=== PATIENT | male | born 1945 | race Caucasian/White ===

== ENCOUNTER 2017-05-15 12:47 | Emergency (ER) | payer MEDICARE ==
[2017-05-15 13:38] VITALS: RESP 18
[2017-05-15] MEDS ORDERED: HYDROcodone/APAP 5-325MG 1 EACH TAB PO STA (14:23)
--- NOTE | 2017-05-15 15:06 | ED ---
Fall HPI <Al Mccarty - Last Filed: 05/15/17 15:30> - General Source: patient Mode of arrival: ambulatory <hSaye Michael - Last Filed: 05/15/17 23:26> - General Chief Complaint: Fall Stated Complaint: Fall/Rib Pain Time Seen by Provider: 05/15/17 14:17 - History of Present Illness Initial Comments: 72-year-old male patient presents for evaluation of left-sided rib pain after experiencing a fall today. Patient states around 11:00 he was getting out of the bed of his pickup truck, stepped down onto a note crate when the milk crate tipped and he fell. Patient states he struck his ribs on the corner of the milk crate. He states he has been having pain to his ribs at the midclavicular line just below his breast since it happened. States it hurts to take a deep breath. Patient states that he feels mildly short of breath however feels is more related to pain. He denies hitting his head or losing consciousness. He denies any other injuries. He denies any radiation of the pain to his back. Patient denies any headache, neck pain, back pain, chest pain, dizziness, weakness, abdominal pain, nausea, vomiting, or difficulties with bowel movements or urination. (Shaye Michael) - Related Data Home Medications Medication Instructions Recorded Confirmed Amitriptyline HCl [Elavil] 20 mg PO HS 05/15/17 05/15/17 Ergocalciferol [Vitamin D2] 50,000 unit PO FORREST 05/15/17 05/15/17 Instaflex 1 tab PO DAILY 05/15/17 05/15/17 Lisinopril [Zestril] 10 mg PO DAILY 05/15/17 05/15/17 Montelukast Sodium [Singulair] 10 mg PO DAILY 05/15/17 05/15/17 Naltrexone HCl/Bupropion HCl 2 tab PO BID 05/15/17 05/15/17 [Contrave ER 8-90 mg Tablet] Pravastatin Sodium [Pravachol] 10 mg PO Q48H 05/15/17 05/15/17 Ubidecarenone [Co Q-10] 100 mg PO Q48H 05/15/17 05/15/17 rOPINIRole HCL [rOPINIRole HCL] 0.5 mg PO BID 05/15/17 05/15/17 Previous Rx's Medication Instructions Recorded Hydrocodone/Acetaminophen [Greenwald 1 tab PO Q6HR PRN #28 tab 05/15/17 5-325] Ibuprofen [Motrin] 600 mg PO Q8HR PRN #30 tab 05/15/17 Allergies Allergy/AdvReac Type Severity Reaction Status Date / Time Sulfa (Sulfonamide AdvReac Rash/Hives Verified 05/15/17 14:37 Antibiotics) Review of Systems ROS Other: All systems not noted in ROS Statement are negative. <Al Mccarty - Last Filed: 05/15/17 15:30> ROS Other: All systems not noted in ROS Statement are negative. <Shaye Michael - Last Filed: 05/15/17 23:26> ROS Statement: Those systems with pertinent positive or pertinent negative responses have been documented in the HPI. Past Medical History Past Medical History: No Reported History History of Any Multi-Drug Resistant Organisms: None Reported Past Surgical History: No Surgical Hx Reported Past Psychological History: No Psychological Hx Reported Smoking Status: Never smoker Past Alcohol Use History: None Reported Past Drug Use History: None Reported <Shaye Michael - Last Filed: 05/15/17 23:26> General Exam Limitations: no limitations General appearance: alert, in no apparent distress, other (Physical well- developed, well-nourished adult male patient in no acute distress. Vital signs upon presentation her temperature 98.4F, pulse 73, respirations 18, blood pressure 157/82, pulse ox 97% on room air.) ENT exam: Present: normal exam, normal oropharynx, mucous membranes moist Neck exam: Present: normal inspection, full ROM, other (Nontender, no step-off, no deformity to firm midline palpation of the posterior cervical spine. Full range of motion without pain or limitation.). Absent: tenderness, meningismus, lymphadenopathy Respiratory exam: Present: normal lung sounds bilaterally. Absent: respiratory distress, wheezes, rales, rhonchi, stridor Cardiovascular Exam: Present: regular rate, normal rhythm, normal heart sounds. Absent: systolic murmur, diastolic murmur, rubs, gallop, clicks GI/Abdominal exam: Present: soft, normal bowel sounds, other (No tenderness to deep palpation over the left upper quadrant, right upper quadrant. No evidence of flank ecchymosis bilateral.). Absent: distended, tenderness, guarding, rebound, rigid Extremities exam: Present: normal inspection, full ROM, normal capillary refill , other (No tenderness over the hips, or with compression of the pelvis.). Absent: tenderness, pedal edema, joint swelling, calf tenderness Back exam: Present: normal inspection, other (Normal back. No flank ecchymosis. ). Absent: tenderness, CVA tenderness (R), CVA tenderness (L), vertebral tenderness Neurological exam: Present: alert, oriented X3, CN II-XII intact Psychiatric exam: Present: normal affect, normal mood Skin exam: Present: warm, dry, intact, normal color. Absent: rash <Shaye Michael - Last Filed: 05/15/17 23:26> Course <Al Mccarty - Last Filed: 05/15/17 15:30> <Shaye Michael - Last Filed: 05/15/17 23:26> Vital Signs 05/15/17 05/15/17 13:35 15:37 Temperature 98.4 F 98 F Pulse Rate 73 75 Respiratory 18 18 Rate Blood Pressure 157/82 142/78 O2 Sat by Pulse 97 98 Oximetry - Reevaluation(s) Reevaluation #1: 05/15/17 15:30 PA supervision: I did personally do a [id number] evaluation the patient he does have good lung sounds bilaterally minimal tenderness with deep breathing. The patient x-rays do show evidence of 2 rib fractures on the left. Patient was given an incentives from a tree he was demonstrated out easily by respiratory therapy. (Al Mccarty) Medical Decision Making <Al Mccarty - Last Filed: 05/15/17 15:30> - Radiology Data Radiology results: report reviewed, image reviewed <Shaye Michael - Last Filed: 05/15/17 23:26> - Medical Decision Making 72-year-old male patient presented for evaluation of left rib pain after a fall. He states it hurts to take a deep breath or presses over the area. He denied any abdominal pain and physical exam did not reveal any abdominal tenderness. Lung sounds are clear and equal bilaterally. X-ray did show a fracture to the seventh and eighth ribs on the left side. Patient was given education and instructions regarding use of incentive spirometry. He was instructed regarding splinting during cough and deep breathing exercises. He was given a prescription for Greenwald and ibuprofen for pain control. He is instructed to follow-up with his primary care physician for recheck in 1-2 days. He is instructed to return here immediately for any new, worsening, or concerning symptoms. Patient verbalizes understanding and agrees with this plan. (Shaye Michael) - Radiology Data One view of the chest and 4 views of the left ribs are obtained. There is no pneumothorax or consolidation. Heart size and the upper limits of normal. There is reduced inspiration. Arthropathy of the left shoulder. Slight deformity of the left anterior lateral seventh and eighth ribs. Impression by Dr. Rushing was acute displaced fracture anterolateral left seventh and eighth rib. (Shaye Michael) Disposition <Al Mccarty - Last Filed: 05/15/17 15:30> Time of Disposition: 15:29 <Shaye Michael - Last Filed: 05/15/17 23:26> Clinical Impression: Rib fractures Disposition: HOME SELF-CARE Condition: Good Instructions: How to Use an Incentive Spirometer (ED), Rib Fracture (ED) Additional Instructions: Splint with pillow while taking deep breaths or coughing. Use the incentive spirometer at least 10 times an hour while awake. If your watching television do this during commercials. Take medications as directed. Take a stool softener with the pain medication so you do not become constipated. Follow up with her primary care physician for recheck in 1-2 days. Return here immediately for any new, worsening, or concerning symptoms. Prescriptions: Hydrocodone/Acetaminophen [Greenwald 5-325] 1 tab PO Q6HR PRN #28 tab PRN Reason: Pain Ibuprofen [Motrin] 600 mg PO Q8HR PRN #30 tab PRN Reason: Pain Referrals: Emerita Ferrera DO [Primary Care Provider] - 1-2 days
--- NOTE | 2017-05-15 15:06 | XR ---
EXAMINATION TYPE: XR ribs LT w pa chest xray DATE OF EXAM: 05/15/2017 COMPARISON: NONE HISTORY: Left-sided pain TECHNIQUE: One view of the chest and 4 views of the left ribs are obtained. FINDINGS: There is no pneumothorax or consolidation. Heart size at the upper limits of normal. There is reduced inspiration. Arthropathy of the shoulder. Slight deformity of the left anterolateral seventh and eig hth rib. IMPRESSION: 1. Acute displaced fracture anterolateral left seventh and eighth rib
[2017-05-15 15:38] VITALS: BP 142/78; PULSE 75; TEMP 98
== END 2017-05-15 15:37 | disposition home or self-care (01) ==
LOC: EC 12:47
DX: S22.42XA Multiple fractures of ribs, left side, initial encounter for closed fracture (principal); Z79.899 Other long term (current) drug therapy; Z88.2 Allergy status to sulfonamides; W18.31XA Fall on same level due to stepping on an object, initial encounter; Y92.812 Truck as the place of occurrence of the external cause
CPT/HCPCS: 99283

== ENCOUNTER → 2017-10-08 | Outpatient (CLI) | payer MEDICARE ==
[2017-10-08 12:53] LABS: Blood Urea Nitrogen 25 mg/dL (9-20)
== END | disposition home or self-care (01) ==
LOC: LABWHC1 11:53
PROVIDERS: ATTEND Otolaryngology
DX: R42 Dizziness and giddiness (principal); H93.3X2 Disorders of left acoustic nerve
CPT/HCPCS: 36415; 82565; 84520

== ENCOUNTER → 2017-10-09 | Outpatient (CLI) | payer MEDICARE ==
--- NOTE | 2017-10-09 09:08 | MR ---
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 FINDINGS: Diffusion weighted images demonstrate no evidence of a recent infarct or other diffusion ab normality. There is no extra-axial fluid collection. Scattered nonenhancing T2/FLAIR hyperintense fo ci are seen within the subcarinal and periventricular white matter, moderate burden given the patient 's age with the largest in the left frontal lobe measuring 9 mm. The ventricular system and cisternal spaces are normal in size and appearance. The brain volume is age appropriate. Midline structures demonstrate normal morphology. The craniocervical junction appears within normal limits. Post contrast images demonstrate no abnormal enhancement. The dural venous sinuses appear pa tent. The globes are intact. Mild mucosal thickening is seen within the right maxillary and ethmoid s inuses. The remaining visualized paranasal sinuses and mastoid air cells are well aerated. Major intr acranial flow voids are maintained. There is no abnormal enhancement of the 7th or 8th cranial nerves. No evidence for extra canalicular or intracanalicular mass. No acoustic schwannoma/neuroma is identified. No fluid is seen within the m iddle ear cavities. No cerebellar pontine angle mass. IMPRESSION: 1. No evidence of abnormal enhancement of the 7th or 8th cranial nerves are acoustic schwannoma. Mast oid air cells are well-aerated. No fluid within the middle ear cavities. No cerebellar pontine angle mass. No abnormal intracranial enhancement or mass. 2. Moderate nonspecific white matter changes, most commonly on the basis of chronic microangiopathy. 3. Mild right maxillary and ethmoidal paranasal sinus disease.
== END | disposition home or self-care (01) ==
LOC: RADMRIMAIN 07:09
PROVIDERS: ATTEND Otolaryngology
DX: I73.9 Peripheral vascular disease, unspecified (principal); R90.89 Other abnormal findings on diagnostic imaging of central nervous system
CPT/HCPCS: 70553; A9581

== ENCOUNTER 2024-04-21 12:05 | Inpatient (IN) | payer MEDICARE ==
[2024-04-21 12:36] LABS: Basophils % (A) 0 %; Eosinophils # (A) 0.2 k/uL (0-0.7); Eosinophils % (A) 4 %; HCT 41.4 % (39.0-53.0); HGB 13.7 gm/dL (13.0-17.5); Lymphocytes % (A) 18 %; MCH 33.1 pg (25.0-35.0); MCV 100.6 fL (80.0-100.0); Mean Platelet Volume 8.1; Monocytes # (A) 0.4 k/uL (0-1.0); Monocytes % (A) 7 %; Neutrophils # (A) 3.8 k/uL (1.3-7.7); Neutrophils % (A) 69 %; Platelet Count 210 k/uL (150-450); RBC 4.12 m/uL (4.30-5.90); RDW 13.2 % (11.5-15.5); WBC 5.6 k/uL (3.8-10.6)
--- NOTE | 2024-04-21 12:38 | XR ---
EXAMINATION TYPE: XR chest 2V DATE OF EXAM: 04/21/2024 COMPARISON: 05/15/2017 TECHNIQUE: PA and lateral views submitted. HISTORY: Chest pain FINDINGS: Limited inspiration. Grossly the lungs are clear and there is no pneumothorax, pleural effusion, or focal pneumonia. Heart size normal and no overt failure. Osseous structures demonstrate hypertrophic and degenerative changes of the spine. Biapical pleural thickening. Question chronic rib or may suggest trauma. IMPRESSION: 1. No acute process.
[2024-04-21 12:41] LABS: Partial Thromboplastin Time 23.3 sec (22.0-30.0); Prothrombin Time 10.9 sec (10.0-12.5)
[2024-04-21 12:46] LABS: ALT 19 U/L (4-49); AST 26 U/L (17-59); African American GFR (CKD) 47 (>60 ml/min/1.73 sqM); Albumin 4.5 g/dL (3.5-5.0); Alkaline Phosphatase 67 U/L (38-126); Anion Gap 6 mmol/L; Blood Urea Nitrogen 36 mg/dL (9-20); Calcium 9.7 mg/dL (8.4-10.2); Carbon Dioxide 26 mmol/L (22-30); Chloride 105 mmol/L (98-107); Glucose 95 mg/dL (74-99); Magnesium 1.9 mg/dL (1.6-2.3); Non-African American GFR(CKD) 40 (>60 ml/min/1.73 sqM); Sodium 137 mmol/L (137-145); Total Bilirubin 0.5 mg/dL (0.2-1.3); Total Protein 7.3 g/dL (6.3-8.2)
--- NOTE | 2024-04-21 13:04 | ED ---
General Adult HPI - General Chief complaint: Chest Pain Stated complaint: chest pains Time Seen by Provider: 04/21/24 12:10 Source: patient, RN notes reviewed, old records reviewed Mode of arrival: ambulatory Limitations: no limitations - History of Present Illness Initial comments: This is an 79-year-old male who presents to the emergency department stating while he was outside working picking up sticks and wood. Patient states started having chest pain he described as very sharp and radiated to his jaw he became very short of breath. Patient states the jaw pain is gone away but he still has some chest pain is about a 4 out of 10 and he still feels short of breath while sitting here. Patient denies any cardiac history patient denies diabetes but he does have high cholesterol and high blood pressure. Patient denies any recent fever chills or cough. Patient denies any back pain. Patient has abdominal pain patient has nausea vomit diarrhea. Patient has a headache patient [place] numbness or weakness. - Related Data Home Medications Medication Instructions Recorded Confirmed Amitriptyline HCl [Elavil] 20 mg PO HS 05/15/17 05/15/17 Ergocalciferol [Vitamin D2] 50,000 unit PO FORREST 05/15/17 05/15/17 Instaflex 1 tab PO DAILY 05/15/17 05/15/17 Montelukast Sodium [Singulair] 10 mg PO DAILY 05/15/17 05/15/17 Naltrexone HCl/Bupropion HCl 2 tab PO BID 05/15/17 05/15/17 [Contrave ER 8-90 mg Tablet] Pravastatin Sodium [Pravachol] 10 mg PO Q48H 05/15/17 05/15/17 Ubidecarenone [Co Q-10] 100 mg PO Q48H 05/15/17 05/15/17 lisinopriL [Zestril] 10 mg PO DAILY 05/15/17 05/15/17 rOPINIRole HCL 0.5 mg PO BID 05/15/17 05/15/17 Previous Rx's Medication Instructions Recorded Hydrocodone/Acetaminophen [[place]ner 1 tab PO Q6HR PRN #28 tab 05/15/17 5-325] Ibuprofen [Motrin] 600 mg PO Q8HR PRN #30 tab 05/15/17 Allergies Allergy/AdvReac Type Severity Reaction Status Date / Time Sulfa (Sulfonamide AdvReac Rash/Hives Verified 04/21/24 12:09 Antibiotics) Review of Systems ROS Statement: Those systems with pertinent positive or pertinent negative responses have been documented in the HPI. ROS Other: All systems not noted in ROS Statement are negative. Past Medical History Past Medical History: No Reported History History of Any Multi-Drug Resistant Organisms: None Reported Past Surgical History: No Surgical Hx Reported Past Psychological History: No Psychological Hx Reported Smoking Status: Never smoker Past Alcohol Use History: None Reported Past Drug Use History: None Reported General Exam - General Exam Comments Initial Comments: GENERAL: Patient is well-developed and well-nourished. Patient is nontoxic and well- hydrated and is in mild distress. ENT: Neck is soft and supple. No significant lymphadenopathy is noted. Oropharynx is clear. Moist mucous membranes. Neck has full range of motion without eliciting any pain. EYES: The sclera were anicteric and conjunctiva were pink and moist. Extraocular movements were intact and pupils were equal round and reactive to light. Eyelids were unremarkable. PULMONARY: Unlabored respirations. Good breath sounds bilaterally. No audible rales rhonchi or wheezing was noted. CARDIOVASCULAR: There is a regular rate and rhythm without any murmurs gallops or rubs. ABDOMEN: Soft and nontender with normal bowel sounds. SKIN: Skin is clear with no lesions or rashes and otherwise unremarkable. NEUROLOGIC: Patient is alert and oriented x3. Cranial nerves II through XII are grossly intact. Motor and sensory are also intact. Normal speech, volume and content. Symmetrical smile. MUSCULOSKELETAL: Normal extremities with adequate strength and full range of motion. LYMPHATICS: No significant lymphadenopathy is noted PSYCHIATRIC: Normal psychiatric evaluation. Limitations: no limitations Course Vital Signs 04/21/24 04/21/24 12:07 14:11 Temperature 97.9 F Pulse Rate 80 57 L Respiratory 20 18 Rate Blood Pressure 165/79 136/76 O2 Sat by Pulse 98 97 Oximetry Medical Decision Making - Medical Decision Making EKG is interpreted by myself. EKG shows sinus rhythm at 66 bpm MT 205 QRS is 135 QT interval is 419 QTc is 432. Patient's EKG shows a right bundle branch block. Was pt. sent in by a medical professional or institution (, PA, MACHINE HEDDLE CLEANER, urgent care, hospital, or usp...) When possible be specific @ -No Did you speak to anyone other than the patient for history (EMS, parent, family, police, friend...)? What history was obtained from this source @ -No Did you review nursing and triage notes (agree or disagree)? Why? @ -I reviewed and agree with nursing and triage notes Were old charts reviewed (outside hosp., previous admission, EMS record, old EKG, old radiological studies, urgent care reports/EKG's, usp records)? Report findings @ -No old charts were reviewed Differential Diagnosis? @ -Differential Chest Pain: Stable Angina, Unstable Angina, STEMI, NSTEMI Aortic Dissection, Pneumothorax, Musculoskeletal, Esophageal Spasm GERD, Cholecystitis, Pancreatitis, Zoster, this is not meant to be an all-inclusive list. EKG interpreted by me (3pts min.). @ -As above X-rays interpreted by me (1pt min.). @ -Chest x-ray showed no acute CT interpreted by me (1pt min.). @ -CT of the chest showed no aortic dissection U/S interpreted by me (1pt. min.). @ -None done What testing was considered but not performed or refused? (CT, X-rays, U/S, labs)? Why? @ -None What meds were considered but not given or refused? Why? @ -None Did you discuss the management of the patient with other professionals (professionals i.e. , PA, MACHINE HEDDLE CLEANER, lab, RT, psych nurse, social media marketing specialist, boring inspector, teacher, budget officer, home health care case manager)? Give summary @ -I spoke with Dr. Ferrera and he agreed to admit the patient admit the patient wrote admitting orders Was smoking cessation discussed for >3mins.? @ -No Was critical care preformed (if so, how long)? @ -No Were there social determinants of health that impacted care today? How? (Homelessness, low income, unemployed, alcoholism, drug addiction, transportation, low edu. Level, literacy, decrease access to med. care, [facility], rehab)? @ -No Was there de-escalation of care discussed even if they declined (Discuss DNR or withdrawal of care, Hospice)? DNR status @ -No What co-morbidities impacted this encounter? (DM, HTN, Smoking, COPD, CAD, Cancer, CVA, ARF, Chemo, Hep., AIDS, mental health diagnosis, sleep apnea, morbid obesity)? @ -None Was patient admitted / discharged? Hospital course, mention meds given and route, prescriptions, significant lab abnormalities, going to OR and other pertinent info. @ -Patient's lab work was within normal range patient's x-ray of the chest and CT of the chest showed no acute abnormality. Patient continue experience a little bit of chest pain but was feeling much better at time of admission Undiagnosed new problem with uncertain prognosis? @ -No Drug Therapy requiring intensive monitoring for toxicity (Heparin, Nitro, Insulin, Cardizem)? @ -No Were any procedures done? @ -No Diagnosis/symptom? @ -Chest pain Acute, or Chronic, or Acute on Chronic? @ -Acute Uncomplicated (without systemic symptoms) or Complicated (systemic symptoms)? @ -Comp Side effects of treatment? @ -No Exacerbation, Progression, or Severe Exacerbation? @ -No Poses a threat to life or bodily function? How? (Chest pain, USA, RI, pneumonia, PE, COPD, DKA, ARF, appy, cholecystitis, CVA, Diverticulitis, Homicidal, Suicidal, threat to staff... and all critical care pts) @ -Yes this could lead to an RI and endorgan dysfunction - Lab Data Result diagrams: 04/21/24 12:19 04/21/24 12:19 Lab Results 04/21/24 04/21/24 04/21/24 Range/Units 12:19 12:19 12:19 WBC 5.6 (3.8-10.6) k/uL RBC 4.12 L (4.30-5.90) m/uL Hgb 13.7 (13.0-17.5) gm/dL Hct 41.4 (39.0-53.0) % MCV 100.6 H (80.0-100.0) fL MCH 33.1 (25.0-35.0) pg MCHC 33.0 (31.0-37.0) g/dL RDW 13.2 (11.5-15.5) % Plt Count 210 (150-450) k/uL MPV 8.1 Neutrophils % 69 % Lymphocytes % 18 % Monocytes % 7 % Eosinophils % 4 % Basophils % 0 % Neutrophils # 3.8 (1.3-7.7) k/uL Lymphocytes # 1.0 (1.0-4.8) k/uL Monocytes # 0.4 (0-1.0) k/uL Eosinophils # 0.2 (0-0.7) k/uL Basophils # 0.0 (0-0.2) k/uL PT 10.9 (10.0-12.5) sec INR 1.0 (<1.2) APTT 23.3 (22.0-30.0) sec Sodium 137 (137-145) mmol/L Potassium 5.0 (3.5-5.1) mmol/L Chloride 105 (98-107) mmol/L Carbon Dioxide 26 (22-30) mmol/L Anion Gap 6 mmol/L BUN 36 H (9-20) mg/dL Creatinine 1.60 H (0.66-1.25) mg/dL Est GFR (CKD-EPI)AfAm 47 (>60 ml/min/1.73 sqM) Est GFR (CKD-EPI)NonAf 40 (>60 ml/min/1.73 sqM) Glucose 95 (74-99) mg/dL Calcium 9.7 (8.4-10.2) mg/dL Magnesium 1.9 (1.6-2.3) mg/dL Total Bilirubin 0.5 (0.2-1.3) mg/dL AST 26 (17-59) U/L ALT 19 (4-49) U/L Alkaline Phosphatase 67 (38-126) U/L Troponin I (0.000-0.034) ng/mL Total Protein 7.3 (6.3-8.2) g/dL Albumin 4.5 (3.5-5.0) g/dL 04/21/24 Range/Units 12:19 WBC (3.8-10.6) k/uL RBC (4.30-5.90) m/uL Hgb (13.0-17.5) gm/dL Hct (39.0-53.0) % MCV (80.0-100.0) fL MCH (25.0-35.0) pg MCHC (31.0-37.0) g/dL RDW (11.5-15.5) % Plt Count (150-450) k/uL MPV Neutrophils % % Lymphocytes % % Monocytes % % Eosinophils % % Basophils % % Neutrophils # (1.3-7.7) k/uL Lymphocytes # (1.0-4.8) k/uL Monocytes # (0-1.0) k/uL Eosinophils # (0-0.7) k/uL Basophils # (0-0.2) k/uL PT (10.0-12.5) sec INR (<1.2) APTT (22.0-30.0) sec Sodium (137-145) mmol/L Potassium (3.5-5.1) mmol/L Chloride (98-107) mmol/L Carbon Dioxide (22-30) mmol/L Anion Gap mmol/L BUN (9-20) mg/dL Creatinine (0.66-1.25) mg/dL Est GFR (CKD-EPI)AfAm (>60 ml/min/1.73 sqM) Est GFR (CKD-EPI)NonAf (>60 ml/min/1.73 sqM) Glucose (74-99) mg/dL Calcium (8.4-10.2) mg/dL Magnesium (1.6-2.3) mg/dL Total Bilirubin (0.2-1.3) mg/dL AST (17-59) U/L ALT (4-49) U/L Alkaline Phosphatase (38-126) U/L Troponin I 0.017 (0.000-0.034) ng/mL Total Protein (6.3-8.2) g/dL Albumin (3.5-5.0) g/dL Disposition Clinical Impression: Chest pain Disposition: ADMITTED IP TO THIS [facility] Referrals: Emerita Ferrera DO [Primary Care Provider] - 1-2 days Time of Disposition: 15:07
[2024-04-21] MEDS: ASPIRIN 81 MG PO STA (13:16)
[2024-04-21] MEDS: NITROGLYCERIN OINT 1 INCH/GM PACKET TOPICAL STA (14:48)
--- NOTE | 2024-04-21 15:01 | CT ---
EXAMINATION TYPE: CT angio thor/abd pel aorta, without and with contrast DATE OF EXAM: 04/21/2024 COMPARISON: None HISTORY: 79-year-old male CP, Jaw pain and MORAN. TECHNIQUE: Contiguous axial scanning of the chest, abdomen, and pelvis performed without and with IV Contrast, patient injected with 80ml mL of Isovue 300. Coronal and sagittal reconstructions performed . 3-D reconstructions generated on a dedicated independent workstation. CT DLP: 1946 mGycm Automated exposure control for dose reduction was used. FINDINGS: Chest: Heart borderline in size. Mitral annular calcifications. No pericardial effusion. Borderline ectatic aortic root at 3.5 cm. Aneurysm ascending aorta 4.0 cm. Bovine configuration to the aortic arch. Ectatic upper descending thoracic aorta at 3.2 cm. No evidence for acute intramural hematoma or aortic dissection. Large caliber main right and left pulmonary arteries measuring up to 3.2 cm suggests underlying pulmo nary arterial hypertension. No thoracic lymphadenopathy by CT size criteria. Some mild scattered subpleural reticular densities at the lower lungs. Mild diffuse bronchial wall th ickening. Minimal emphysematous change suggested. Correlate for mild fibrosis. ABDOMEN: Noncontrast and arterial phase imaging of the liver, gallbladder, adrenal glands, kidneys, spleen, an d pancreas show no gross abnormality. Tiny hiatal hernia. No dilated small bowel, free fluid, or free air. No mesenteric or retroperitoneal lymphadenopathy. Small fatty umbilical hernia. Scattered moderate stool throughout the colon. There is left-sided colonic diverticulosis, particular ly along the sigmoid colon with his tortuous. No pericolonic inflammatory change. Pelvis: Mild circumferential bladder wall thickening. Prostate gland is borderline at 4.0 cm wide. No abnorma l fluid collection in the pelvis or pelvic lymphadenopathy. Bones: Mild pectus excavatum deformity. Old right posterior rib fracture deformities. Moderate degenerative disc disease lumbar spine. Reversal of the normal lumbar lordosis. Hypertrophic facet arthropathy lower lumbar spine. Degenerative grade 1 retrolisthesis L3-L4 and L4-L5. IMPRESSION: 1. MILD ANEURYSM ASCENDING AORTA AT 4.0 CM. NO EVIDENCE FOR AORTIC DISSECTION. 2. 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 3. Tiny hiatal hernia. Small fatty umbilical hernia. 4. Left-sided colonic diverticulosis, greatest in the sigmoid colon. No findings of acute diverticuli tis. Moderate scattered stool. 5. Mild circumferential bladder wall thickening may be chronic for the patient. Correlate to exclude cystitis.
[2024-04-21] MEDS ORDERED: NITROGLYCERIN SL TABS 0.4 MG TAB SUBLINGUAL PRN (15:07)
[2024-04-21] MEDS: HEPARIN SOD,PORK IN 0.45% NACL 25,000 UNIT in 0.45% NACL 1 250ML.BAG IV SCH (16:40)
[2024-04-21] MEDS: traZODone HCL 100 MG TAB PO SCH (21:12)
[2024-04-21] MEDS: HEPARIN SODIUM 1,000 UN/ML (10ML VL) IV PRN (23:42)
[2024-04-22] MEDS ORDERED: ALPRAZolam 0.5 MG TAB PO PRN (08:26)
[2024-04-22] MEDS ORDERED: ALPRAZolam 0.25 MG TAB PO PRN (08:26)
[2024-04-22] MEDS ORDERED: NITROGLYCERIN SL TABS 0.4 MG TAB SUBLINGUAL PRN (08:26)
[2024-04-22] MEDS: SODIUM CHLORIDE 0.9% 1,000 ML IV SCH (08:29)
[2024-04-22] MEDS: ASPIRIN 325 MG TAB PO ONE (08:29)
[2024-04-22] MEDS ORDERED: NITROGLYCERIN OINT 1 INCH/GM PACKET TOPICAL SCH (08:30)
[2024-04-22] MEDS: MONTELUKAST 10 MG TAB PO SCH (08:30)
[2024-04-22] MEDS: METOPROLOL TARTRATE 12.5 MG TAB PO SCH (08:31)
[2024-04-22] MEDS: ASPIRIN 81 MG PO SCH (08:32)
[2024-04-22] MEDS: NITROGLYCERIN OINT 1 INCH/GM PACKET TOPICAL SCH (08:35)
[2024-04-22] MEDS: NON FORMULARY DRUG (Naltrexone Hcl/Bupropion Hcl [Contrave Er 8-90 Mg Tablet] 1 EACH Table PO SCH (08:37)
[2024-04-22] MEDS ORDERED: lisinopriL 20 MG TAB PO SCH (09:00)
[2024-04-22] MEDS ORDERED: ASPIRIN 325 MG TAB PO SCH (09:00)
[2024-04-22] MEDS ORDERED: INSTAFLEX PO SCH (09:00)
--- NOTE | 2024-04-22 11:29 | P.CRDCN ---
History of Present Illness History of present illness: HISTORY OF PRESENT ILLNESS: This is a 79-year-old male with a past medical history significant for hypertension. 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 We have been asked to see the patient in consultation for non-STEMI. Patient examined at the bedside in the emergency room. Patient states a couple days ago he cut down a tree in his yard. He states yesterday he was picking up branches and putting them in a pile to burn. He states after he was done he began to have chest discomfort. He states that he had a bad headache and pain in his left upper jaw, chest pain, and shortness of breath. He states he initially thought he had a toothache so he took some Tylenol and Orajel but his pain persisted. He states his pain lasted for approximately 3 hours overall. He came to the emergency room for further evaluation. The patient states he was offered nitro but by the time this was offered his pain had subsided and he declined to take it. He does report receiving aspirin. Patient was found to have elevated troponin and was started on IV heparin. The patient denies having any further episodes of chest pain or pressure. He denies any shortness of breath. Patient denies any previous history of CAD. DIAGNOSTICS: - EKG reveals mechanism with nonspecific ST-T wave changes. Right bundle branch block. - Chest xray negative for acute process - Laboratory data: WBC 5.6. Hemoglobin 13.7. Platelet count 210. Sodium 137. Potassium 5.0. BUN 36. Creatinine 1.60. Magnesium 1.9. Troponin 0.017. 0.131. 0.766. - Current home cardiac medications include lisinopril 20 mg daily REVIEW OF SYSTEMS: At the time of my exam: CONSTITUTIONAL: Denies fever or chills. HEENT: Denies blurred vision, vision changes, or eye pain. Denies hemoptysis CARDIOVASCULAR: Denies chest pain. Denies orthopnea. Denies PND. Denies palpitations RESPIRATORY: Denies shortness of breath. GASTROINTESTINAL: Denies abdominal pain. Denies nausea or vomiting. HEMATOLOGIC: Denies bleeding disorders. GENITOURINARY: Denies any blood in urine. SKIN: Denies pruitis. Denies rash. PHYSICAL EXAM: VITAL SIGNS: Reviewed. GENERAL: Well-developed in no acute distress. HEENT: Head is normocephalic. Pupils are equal, round. Sclerae anicteric. Mucous membranes of the mouth are moist. Neck supple. No JVD or thyromegaly LUNGS: Respirations even and unlabored. Lungs essentially clear to auscultation bilaterally. HEART: Regular rate and rhythm. S1 and S2 heard. ABDOMEN: Soft. Nondistended. Nontender. EXTREMITIES: Normal range of motion. No clubbing or cyanosis. Peripheral pulses intact. No lower extremity edema NEUROLOGIC: Awake and alert. Oriented x 3. ASSESSMENT: Non-STEMI Acute kidney injury Hypertension PLAN: Continue IV heparin And aspirin 81 mg daily and atorvastatin 80 mg at night Add low-dose beta-viviana 12.5 mg twice a day Add nitro paste Discontinue lisinopril due to OSEAS Begin IV fluids at 75 cc an hour. Repeat BMP Obtain 2D echo to assess cardiac structure and function N.p.o. midnight Patient undergo cardiac catheterization tomorrow with Dr. Mayen Further recommendations pending patient course Nurse practitioner note has been reviewed by physician. Signing provider agrees with the documented findings, assessment, and plan of care documented by PREVENTIVE MEDICINE SPECIALIST as a scribe. Past Medical History Past Medical History: Hypertension History of Any Multi-Drug Resistant Organisms: None Reported Past Surgical History: Tonsillectomy Past Anesthesia/Blood Transfusion Reactions: Previous Problems w/ Anesthesia Additional Past Anesthesia/Blood Transfusion Reaction / Comment(s): states he was told post op dizziness was related to anesthesia Past Psychological History: No Psychological Hx Reported Smoking Status: Never smoker Past Alcohol Use History: None Reported Past Drug Use History: None Reported Medications and Allergies Home Medications Medication Instructions Recorded Confirmed Type Instaflex 1 tab PO DAILY 05/15/17 04/21/24 History Montelukast Sodium [Singulair] 10 mg PO DAILY 05/15/17 04/21/24 History Naltrexone HCl/Bupropion HCl 2 tab PO BID 05/15/17 04/21/24 History [Contrave ER 8-90 mg Tablet] Colchicine [Colcrys] 0.6 mg PO DAILY 04/21/24 04/21/24 History Ergocalciferol [Vitamin D2 (1250 1,250 mcg PO FORREST 04/21/24 04/21/24 History Mcg = 03650 Iu)] Meclizine [Antivert] 25 mg PO BID 04/21/24 04/21/24 History allopurinoL [Zyloprim] 300 mg PO DAILY 04/21/24 04/21/24 History lisinopriL [Prinivil] 20 mg PO DAILY 04/21/24 04/21/24 History rOPINIRole HCL [Requip] 1 mg PO BID 04/21/24 04/21/24 History traZODone HCL 100 mg PO HS 04/21/24 04/21/24 History Allergies Allergy/AdvReac Type Severity Reaction Status Date / Time Sulfa (Sulfonamide Allergy Rash/Hives Verified 04/21/24 15:51 Antibiotics) Physical Exam Vitals: Vital Signs Temp Pulse Resp BP Pulse Ox 04/22/24 07:22 56 L 18 103/56 04/22/24 06:44 62 16 119/81 95 04/22/24 04:20 58 L 16 96/53 95 04/22/24 02:10 55 L 16 109/61 94 L 04/21/24 23:00 57 L 18 122/54 97 04/21/24 22:32 60 18 126/56 04/21/24 20:08 61 16 134/74 95 04/21/24 18:52 67 16 149/76 99 04/21/24 17:08 64 18 146/78 99 04/21/24 16:04 66 16 137/71 98 04/21/24 15:06 62 18 140/76 98 04/21/24 14:11 57 L 18 136/76 97 04/21/24 12:07 97.9 F 80 20 165/79 98 Intake and Output 04/21/24 04/22/24 04/22/24 22:59 06:59 14:59 Intake Total 150.138 Balance 150.138 Intake: Intake, IV Titration 150.138 Amount Heparin Sod,Pork in 0.45% 150.138 NaCl 25,000 unit In 0.45 % NaCl 1 250ml.bag @ 11. 023 UNITS/KG/HR 10 mls/hr IV .Q24H [facility] Rx#: [id number] Other: Weight 90.718 kg Results 04/21/24 12:19 04/21/24 12:19 Cardiac Enzymes 04/21/24 04/21/24 04/21/24 Range/Units 12:19 12:19 15:25 AST 26 (17-59) U/L Troponin I 0.017 0.131 H* (0.000-0.034) ng/mL 04/21/24 Range/Units 18:27 AST (17-59) U/L Troponin I 0.766 H* (0.000-0.034) ng/mL Coagulation 04/21/24 04/21/24 04/22/24 Range/Units 12:19 22:33 05:50 PT 10.9 (10.0-12.5) sec APTT 23.3 37.4 H 87.4 H (22.0-30.0) sec CBC 04/21/24 Range/Units 12:19 WBC 5.6 (3.8-10.6) k/uL RBC 4.12 L (4.30-5.90) m/uL Hgb 13.7 (13.0-17.5) gm/dL Hct 41.4 (39.0-53.0) % Plt Count 210 (150-450) k/uL Comprehensive Metabolic Panel 04/21/24 Range/Units 12:19 Sodium 137 (137-145) mmol/L Potassium 5.0 (3.5-5.1) mmol/L Chloride 105 (98-107) mmol/L Carbon Dioxide 26 (22-30) mmol/L BUN 36 H (9-20) mg/dL Creatinine 1.60 H (0.66-1.25) mg/dL Glucose 95 (74-99) mg/dL Calcium 9.7 (8.4-10.2) mg/dL AST 26 (17-59) U/L ALT 19 (4-49) U/L Alkaline Phosphatase 67 (38-126) U/L Total Protein 7.3 (6.3-8.2) g/dL Albumin 4.5 (3.5-5.0) g/dL Current Medications Generic Name Dose Route Start Last Admin Trade Name Freq PRN Reason Stop Dose Admin Aspirin 325 mg 04/22/24 09:00 Aspirin 325 Mg Tab PO DAILY [facility] Aspirin 81 mg 04/22/24 09:00 Aspirin 81 Mg PO DAILY [facility] Atorvastatin Calcium 80 mg 04/22/24 21:00 Atorvastatin 80 Mg Tab PO HS [facility] Heparin Sodium (Porcine) 0 unit 04/21/24 16:29 04/21/24 23:42 Heparin Sodium 1,000 Un/Ml (10ml Vl) IV 2,267 unit PER PROTOCOL PRN Administration Low PTT Protocol Heparin Sodium/Sodium Chloride 250 mls @ 10 mls/hr 04/21/24 16:30 04/22/24 06:27 25,000 unit/ Sodium Chloride IV 11.023 units/kg/hr .Q24H [facility] 10 mls/hr Titration Protocol 11.023 UNITS/KG/HR Montelukast Sodium 10 mg 04/22/24 09:00 Montelukast 10 Mg Tab PO DAILY [facility] Nitroglycerin 0.4 mg 04/21/24 15:07 Nitroglycerin Sl Tabs 0.4 Mg Tab SUBLINGUAL Q5M PRN Chest Pain Non-Formulary Medication 2 tab 04/22/24 09:00 Naltrexone Hcl/Bupropion Hcl [Contrave Er 8-90 Mg Tablet] PO BID [facility] Ropinirole HCl 1 mg 04/21/24 21:15 04/21/24 21:12 Ropinirole Hcl 1 Mg Tab PO 1 mg BID [facility] Administration Trazodone HCl 100 mg 04/21/24 21:00 04/21/24 21:12 Trazodone Hcl 100 Mg Tab PO 100 mg HS [facility] Administration Intake and Output 04/21/24 04/22/24 04/22/24 22:59 06:59 14:59 Intake Total 150.138 Balance 150.138 Intake: Intake, IV Titration 150.138 Amount Heparin Sod,Pork in 0.45% 150.138 NaCl 25,000 unit In 0.45 % NaCl 1 250ml.bag @ 11. 023 UNITS/KG/HR 10 mls/hr IV .Q24H [facility] Rx#: [id number] Other: Weight 90.718 kg 04/21/24 12:19 04/21/24 12:19
[2024-04-22 12:13] LABS: African American GFR (CKD) 59 (>60 ml/min/1.73 sqM); Anion Gap 4 mmol/L; Blood Urea Nitrogen 27 mg/dL (9-20); Calcium 8.5 mg/dL (8.4-10.2); Carbon Dioxide 24 mmol/L (22-30); Chloride 104 mmol/L (98-107); Glucose 145 mg/dL (74-99); Non-African American GFR(CKD) 51 (>60 ml/min/1.73 sqM); Potassium 4.5 mmol/L (3.5-5.1); Sodium 132 mmol/L (137-145)
--- NOTE | 2024-04-22 14:50 | P.HPIM ---
History of Present Illness H&P Date: 04/22/24 Chief Complaint: CP This is an 79-year-old gentleman with past medical history of hypertension, strong family history of CAD, father age 86 with AL, obesity, presented to the ER with complaints of sharp midsternal chest pain, with left jaw pain accompanied by headache, shortness of breath, nausea and diaphoresis, while picking up branches in the yard,to burn. Thought he had a toothache, took Orajel and Tylenol with no relief .pain continued for 2 to 3 hours and presented to the ER .reports normal stress 2 years ago denies history of prior AL or stent. Blood pressure on admission 165/79 ,EKG reported sinus rhythm, right bundle branch block with elevated troponins; 0.017, 0.131, 0.766. Heparin drip and IV fluids initiated in the ER. CTA of the thoracic aorta reported mild aneurysm ascending aorta at 4.0 cm no evidence for aortic dissection, mild interstitial fibrosis in the lungs and pulmonary arterial hypertension, tiny hiatal hernia, small fatty umbilical hernia, left-sided colonic diverticulosis greatest in the sigmoid colon, moderate scattered stool, mild circumferential bladder wall thickening-may be chronic. Chest x-ray reported no acute process, bilateral pleural thickening.WBC 5.6. Hemoglobin 13.7. Platelets 210. Sodium 137. Potassium 5.0. BUN 36. Creatinine 1.60. Magnesium 1.9. Review of Systems ROS Statement: Those systems with pertinent positive or pertinent negative responses have been documented in the HPI. ROS Other: All systems not noted in ROS Statement are negative. Past Medical History Past Medical History: Hypertension History of Any Multi-Drug Resistant Organisms: None Reported Past Surgical History: Tonsillectomy Past Anesthesia/Blood Transfusion Reactions: Previous Problems w/ Anesthesia Additional Past Anesthesia/Blood Transfusion Reaction / Comment(s): states he was told post op dizziness was related to anesthesia Past Psychological History: No Psychological Hx Reported Smoking Status: Never smoker Past Alcohol Use History: None Reported Past Drug Use History: None Reported Medications and Allergies Home Medications Medication Instructions Recorded Confirmed Type Instaflex 1 tab PO DAILY 05/15/17 04/21/24 History Montelukast Sodium [Singulair] 10 mg PO DAILY 05/15/17 04/21/24 History Naltrexone HCl/Bupropion HCl 2 tab PO BID 05/15/17 04/21/24 History [Contrave ER 8-90 mg Tablet] Colchicine [Colcrys] 0.6 mg PO DAILY 04/21/24 04/21/24 History Ergocalciferol [Vitamin D2 (1250 1,250 mcg PO FORREST 04/21/24 04/21/24 History Mcg = [id number] Iu)] Meclizine [Antivert] 25 mg PO BID 04/21/24 04/21/24 History allopurinoL [Zyloprim] 300 mg PO DAILY 04/21/24 04/21/24 History lisinopriL [Prinivil] 20 mg PO DAILY 04/21/24 04/21/24 History rOPINIRole HCL [Requip] 1 mg PO BID 04/21/24 04/21/24 History traZODone HCL 100 mg PO HS 04/21/24 04/21/24 History Allergies Allergy/AdvReac Type Severity Reaction Status Date / Time Sulfa (Sulfonamide Allergy Rash/Hives Verified 04/21/24 15:51 Antibiotics) Physical Exam Vitals: Vital Signs Pulse Resp BP Pulse Ox 04/22/24 10:26 58 L 18 101/53 94 L 04/22/24 07:22 56 L 18 103/56 04/22/24 06:44 62 16 119/81 95 04/22/24 04:20 58 L 16 96/53 95 04/22/24 02:10 55 L 16 109/61 94 L 04/21/24 23:00 57 L 18 122/54 97 04/21/24 22:32 60 18 126/56 04/21/24 20:08 61 16 134/74 95 04/21/24 18:52 67 16 149/76 99 04/21/24 17:08 64 18 146/78 99 04/21/24 16:04 66 16 137/71 98 04/21/24 15:06 62 18 140/76 98 Intake and Output 04/21/24 04/22/24 04/22/24 22:59 06:59 14:59 Intake Total 150.138 Balance 150.138 Intake: Intake, IV Titration 150.138 Amount Heparin Sod,Pork in 0.45% 150.138 NaCl 25,000 unit In 0.45 % NaCl 1 250ml.bag @ 11. 023 UNITS/KG/HR 10 mls/hr IV .Q24H [facility] Rx#: [id number] Other: Weight 90.718 kg PHYSICAL EXAM: VITAL SIGNS: [As above] GENERAL: Alert and oriented x 3, sitting up on stretcher, no acute distress HEENT: Normocephalic, conjunctivae normal. eyes normal. MMM. NECK: Full, no JVD. No thyroid enlargement. No LNs CARDIOVASCULAR: S1, S2 regular.. No murmur RESPIRATION: Breath sounds diminished in the bases. No rhonchi or crackles. No bronchial breathing. ABDOMEN: Soft, nontender . No guarding. no masses palpable. No ascites, No hepatosplenomegaly.Bowel sounds heard. LEGS: No edema. no swelling NERVOUS SYSTEM: Cranial N 2-12 grossly normal.Strength and sensation grossly intact. Skin: Warm and dry, no rash Results CBC & Chem 7: 04/21/24 12:19 04/22/24 11:30 Labs: Abnormal Lab Results - Last 24 Hours (Table) 04/21/24 04/21/24 04/21/24 Range/Units 15:25 18:27 22:33 APTT 37.4 H (22.0-30.0) sec Sodium (137-145) mmol/L BUN (9-20) mg/dL Creatinine (0.66-1.25) mg/dL Glucose (74-99) mg/dL Troponin I 0.131 H* 0.766 H* (0.000-0.034) ng/mL 04/22/24 04/22/24 04/22/24 Range/Units 05:50 11:30 12:10 APTT 87.4 H 49.1 H (22.0-30.0) sec Sodium 132 L (137-145) mmol/L BUN 27 H (9-20) mg/dL Creatinine 1.31 H (0.66-1.25) mg/dL Glucose 145 H (74-99) mg/dL Troponin I (0.000-0.034) ng/mL Thrombosis Risk Factor Assmnt - Choose All That Apply Any of the Below Risk Factors Present?: No Each Risk Factor Represents 3 Points: Age 75 years or older Thrombosis Risk Factor Assessment Total Risk Factor Score: 3 Thrombosis Risk Factor Assessment Level: Moderate Risk Assessment and Plan Assessment: Acute NSTEMI Acute renal injury, hold HARSHAL inhibitor Hypertension 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 IV fluid hydration. echo pending. Holding HARSHAL inhibitor with close monitoring of renal function. Evaluated by cardiology, scheduled for cardiac catheterization tomorrow, maintain on IV heparin drip, aspirin, statin, beta-viviana and Nitropaste. The impression and plan of care has been dictated as directed. : I performed a history and examination of this patient, discussed the same with the dictator. I agree with the dictator's note ,documented as a scribe. Any additional findings or plans will be noted.
[2024-04-22 16:50] LABS: Chol/HDL Ratio 2.16 Ratio; LDL Cholesterol,Calculated 54.9 mg/dL (0.0-131.0); VLDL Calculation 13.24 mg/dL (5.00-40.00)
[2024-04-22] MEDS: ATORVASTATIN 80 MG TAB PO SCH (20:53)
[2024-04-22] MEDS: ZOLPIDEM 5 MG TAB PO SCH (20:53)
[2024-04-22] MEDS ORDERED: MONTELUKAST 10 MG TAB PO SCH (21:00)
[2024-04-23] MEDS: SODIUM CHLORIDE 0.9% 1,000 ML in EMPTY BAG 1 BAG IV SCH (03:40)
[2024-04-23] MEDS: ATORVASTATIN 80 MG TAB PO ONE (05:20)
[2024-04-23 07:57] LABS: African American GFR (CKD) 56 (>60 ml/min/1.73 sqM); Anion Gap 2 mmol/L; Blood Urea Nitrogen 20 mg/dL (9-20); Calcium 8.5 mg/dL (8.4-10.2); Carbon Dioxide 28 mmol/L (22-30); Chloride 105 mmol/L (98-107); Glucose 92 mg/dL (74-99); Non-African American GFR(CKD) 48 (>60 ml/min/1.73 sqM); Potassium 4.6 mmol/L (3.5-5.1); Sodium 135 mmol/L (137-145)
[2024-04-23] MEDS ORDERED: LIDOCAINE 1% INJ 10MG/ML (20 ML MDV) ONE (08:46)
[2024-04-23] MEDS ORDERED: VERAPAMIL 2.5 MG/ML 2 ML AMP ONE (08:46)
[2024-04-23] MEDS ORDERED: HEPARIN SODIUM 1,000 UN/ML (10ML VL) ONE (09:01)
[2024-04-23] MEDS: HEPARIN SODIUM,PORCINE 10,000 UNIT in SODIUM CHLORIDE 0.9% 1,000 ML IRRIGATION PRN (09:03)
[2024-04-23] MEDS: IV FLUID CONTINUATION 1,000 ML IV ONE (09:03)
[2024-04-23] MEDS: HEPARIN SODIUM,PORCINE (1 ML) 2,500 UNIT in SODIUM CHLORIDE 0.9% 250 ML IRRIGATION PRN (09:03)
[2024-04-23] MEDS: MIDAZOLAM 2 MG/2 ML VIAL IVP ONE (09:23)
[2024-04-23] MEDS: LIDOCAINE 1% INJ 10MG/ML (20 ML MDV) SQ ONE (09:27)
[2024-04-23] MEDS: VERAPAMIL SYRINGE (5 MG/10 ML) INTRAARTER ONE (09:40)
[2024-04-23] MEDS: HEPARIN SODIUM 1,000 UN/ML (10ML VL) IV ONE (09:44)
[2024-04-23] MEDS: IOPAMIDOL-370 100ML BTL INJ ONE (09:54)
--- NOTE | 2024-04-23 10:16 | P.CARDCATH ---
Date of Procedure: 04/23/24 Description of Procedure: History: Patient was referred for cardiac catheterization to evaluate for CAD. This patient was admitted to the hospital with chest pain borderline troponin elevation no EKG changes. He has underlying hypertension and hypercholesterolemia. In view of his presentation and elevated troponin he was advised cardiac catheterization. Risks benefits options rationale were explained. I also spoke to the patient at length this morning and after explaining risks benefits options and he was in full agreement we proceeded with the procedure Procedure Details: The risks, benefits, complications, treatment options, and expected outcomes were discussed with the patient. The patient and/or family concurred with the proposed plan, giving informed consent. Patient was brought to the laboratory director after IV hydration was begun and oral premedication was given. Patient was further sedated with midazolam. Patient was prepped and draped in the usual manner. Under strict aseptic precautions and local anesthesia a 6 Divehi introducer was placed in the right radial artery using ultrasound technique with a micropuncture needle. Using a JL 3/5 and a JR 4/0 catheters I performed coronary angiography and the same JR catheter was used to check LV pressures and LV gram was not performed. After the procedure was completed the sheaths and catheters were all removed. Hemostasis was achieved with TR band. Saturation in the fingers of the right hand was about 94%. Moderate conscious sedation time was 28 minutes. Patient's oxygen saturation hemodynamics and EKG were monitored closely. Findings: Hemodynamics: The left ventricle end-diastolic pressure was 16 mmHg without any gradient across aortic valve Left Main: Normal Short patent vessel that bifurcates into LAD and circumflex LAD: Fair caliber vessel gives off septal and diagonal branches runs all the way to the apex minor irregularities no significant disease CIRC: Nondominant vessel gives off a high first obtuse marginal branch and then runs in the AV groove with the distal posterior lateral branches. Minor irregularities are noted. The first obtuse marginal is large in caliber and distribution gives a small secondary branch which has about a 50 to 60% narrowing. The obtuse marginal itself is free of significant disease and supplies a fair amount of myocardium RCA: Dominant no significant disease distally bifurcates into PDA and PLV minor irregularities no significant disease Closure Device: TR band Complications: None Estimated Blood Loss: Minimal Impression: Right dominant system slightly elevated filling pressures 50 to 60% stenosis of the secondary branch of obtuse marginal branch of circumflex. LAD and RCA are free of significant disease Pre Procedure Diagnosis: Non-ST elevation NV Final Post Procedure Diagnosis: Non-ST elevation NV with noncritical CAD Recommendation: Continued medical therapy aggressive risk factor modification follow-up stress testing as an outpatient in 4 to 6 weeks. Findings discussed with patient and no family available. He patient will communicate with his Complications: None; patient tolerated the procedure well. Disposition: 3 S.- hemodynamically stable. Condition: Stable Discharge Disposition: Discharge in 24 hours after adequate hydration.
--- NOTE | 2024-04-23 10:48 | CA ---
Transthoracic Echo Report Name: John Woody Age: 79 Gender: M : 1945 Exam Date: 04/22/2024 16:19 Exam Location: [facility] Ht (in): 68 Wt (lb): 200 Ordering Physician: Katharine Silva Attending/Referring Phys: [id number], Ricardo Conservation Engineer Marj Lopez RDCS Procedure CPT: Indications: LV function, NSTEMI Cardiac Hx: HTN Technical Quality: Technically difficult study Contrast 1: Definity Total Dose (mL): 2 Contrast 2: Total Dose (mL): MEASUREMENTS (Male / Female) Normal Values 2D ECHO LV Diastolic Diameter PLAX 4.4 cm 4.2 - 5.9 / 3.9 - 5.3 cm LV Systolic Diameter PLAX 2.9 cm IVS Diastolic Thickness 1.6 cm 0.6 - 1.0 / 0.6 - 0.9 cm LVPW Diastolic Thickness 1.6 cm 0.6 - 1.0 / 0.6 - 0.9 cm LV Relative Wall Thickness 0.7 RV Internal Dim ED PLAX 3.7 cm LVOT Diameter 2.3 cm LA Systolic Diameter LX 4.0 cm 3.0 - 4.0 / 2.7 - 3.8 cm LA Volume 82.4 cm??? 18 - 58 / 22 - 52 cm??? LA Volume Index 39.0 cm???/m??? 16 - 28 cm???/m??? M-MODE Aortic Root Diameter MM 3.7 cm AV Cusp Separation MM 2.2 cm DOPPLER AV Peak Velocity 236.2 cm/s AV Peak Gradient 22.3 mmHg AV Mean Velocity 172.0 cm/s AV Mean Gradient 13.2 mmHg AV Velocity Time Integral 57.1 cm LVOT Peak Velocity 180.0 cm/s LVOT Peak Gradient 13.0 mmHg LVOT Velocity Time Integral 48.0 cm LVOT Stroke Volume 194.2 cm??? LVOT Stroke Volume Index 95.0 ml/m??? LVOT Cardiac Index 4688.8 cm???/min???m??? AV Area Cont Eq vti 3.4 cm??? AV Area Cont Eq pk 3.1 cm??? MV Peak Velocity 174.6 cm/s MV Peak Gradient 12.2 mmHg MV Mean Velocity 96.7 cm/s MV Mean Gradient 4.5 mmHg MV Velocity Time Integral 77.7 cm MV Area PHT 1.2 cm??? Mitral E Point Velocity 160.2 cm/s Mitral A Point Velocity 136.8 cm/s Mitral E to A Ratio 1.2 MV Deceleration Time 658.2 ms MV E' Velocity 10.6 cm/s Mitral E to MV E' Ratio 15.1 TR Peak Velocity 246.7 cm/s TR Peak Gradient 24.3 mmHg Right Ventricular Systolic Press 27.9 mmHg FINDINGS Left Ventricle Left ventricular ejection fraction is estimated at 55-60 %. Left ventricular cavity size normal. Moderate to severe concentric left ventricular hypertrophy. Normal left ventricular wall motion. Right Ventricle Moderate right ventricular dilatation. Right ventricular systolic pressure within normal limits. Right Atrium Right atrium not well visualized. Left Atrium Moderately increased left atrial volume. Mildly increased left atrial area. Mitral Valve Moderate thickening/calcification of the anterior mitral valve leaflet. Moderate thickening/calcification of the posterior mitral valve leaflet. Mild MS Aortic Valve Aortic valve sclerosis. Mild aortic stenosis with a peak gradient of 22 mmHg and a mean gradient of 13 mmHg. Tricuspid Valve Structurally normal tricuspid valve. [id number] tricuspid regurgitation. Pulmonic Valve Structurally normal pulmonic valve. No pulmonic regurgitation. Pericardium No pericardial effusion. Aorta Normal size aortic root and proximal ascending aorta. CONCLUSIONS Normal LV size with moderate to severe concentric LVH preserved systolic function. Right ventricle is mildly dilated there is mitral annular calcification and aortic valve sclerosis. There is some calcification of mitral valve leaflets with mild restriction. Mild mitral stenosis cannot be excluded. Slightly increased velocity across aortic valve. No pericardial effusion no significant pulmonary hypertension Previewed by: Dr. Danilo Mayen MD (Electronically Signed) Final Date: 23 April 2024 10:47
--- NOTE | 2024-04-23 11:16 | P.PN ---
Progress Note - Text Progress Note Date: 04/23/24 Off the floor for cardiac catheterization. Not seen.
[2024-04-23 11:18] VITALS: TEMP 97.7
[2024-04-23] MEDS: CLOPIDOGREL 75 MG TAB PO SCH (11:18)
[2024-04-23] MEDS: ISOSORBIDE MONONITRATE ER 30 MG TAB.ER.24H PO SCH (13:00)
[2024-04-23 15:44] VITALS: BP 124/61; PULSE 50; RESP 18
== END 2024-04-23 18:28 | disposition home or self-care (01) | DRG 281 ==
LOC: EC 12:05 → 6NMEDSUR 15:08 → 3SCARD 20:40 → OBSVTOIN 04-22 11:45 → 3SCARD 04-22 12:40
PROVIDERS: ADMIT Family Medicine; ATTEND Family Medicine
PROC: 4A023N7 Measurement of Cardiac Sampling and Pressure, Left Heart, Percutaneous Approach (ICD-10-PCS; 2024-04-23)
PROC: B2111ZZ Fluoroscopy of Multiple Coronary Arteries using Low Osmolar Contrast (ICD-10-PCS; principal; 2024-04-23 07:30)
DX: I21.4 Non-ST elevation (NSTEMI) myocardial infarction (principal); N17.9 Acute kidney failure, unspecified; I27.21 Secondary pulmonary arterial hypertension; I71.21 Aneurysm of the ascending aorta, without rupture; J84.10 Pulmonary fibrosis, unspecified; I45.10 Unspecified right bundle-branch block; I10 Essential (primary) hypertension; I25.10 Atherosclerotic heart disease of native coronary artery without angina pectoris; E78.00 Pure hypercholesterolemia, unspecified; K44.9 Diaphragmatic hernia without obstruction or gangrene; K42.9 Umbilical hernia without obstruction or gangrene; K57.30 Diverticulosis of large intestine without perforation or abscess without bleeding; Z79.899 Other long term (current) drug therapy; Z88.2 Allergy status to sulfonamides; Z82.49 Family history of ischemic heart disease and other diseases of the circulatory system
CPT/HCPCS: 36415; 71046; 71275; 74174; 80048; 80053; 80061; 83735; 84484; 85025; 85610; 85730; 93005; 93306; 93458; 96361; 96365; 96366; 99285

== ENCOUNTER → 2024-07-15 | Outpatient (CLI) | payer MEDICARE ==
[2024-07-15 17:24] LABS: BUN/Creat Ratio 17.64 Ratio (12.00-20.00); Blood Urea Nitrogen 24.7 mg/dL (9.0-27.0); Carbon Dioxide 27.2 mmol/L (21.6-31.8); Chloride 100 mmol/L (96-109); Glucose 104 mg/dL (70-110); Potassium 4.4 mmol/L (3.5-5.5); Sodium 137 mmol/L (135-145)
[2024-07-15 17:29] LABS: NT-Pro-B-Type Natriuretic Pept 189 pg/mL (0-450)
== END | disposition home or self-care (01) ==
LOC: LABWHC1 12:43
PROVIDERS: ATTEND Nurse Practitioner Adult Health
DX: R60.0 Localized edema (principal)
CPT/HCPCS: 36415; 80048; 83880

== ENCOUNTER 2024-07-25 00:33 | Emergency (ER) | payer MEDICARE ==
[2024-07-25 00:43] VITALS: BP 153/77; PULSE 71; RESP 16; TEMP 98.2
--- NOTE | 2024-07-25 02:20 | ED ---
Eye Problem HPI - General Chief complaint: Eye Problems Stated complaint: R Eye irritation Time Seen by Provider: 07/25/24 00:44 Source: patient Mode of arrival: ambulatory Limitations: no limitations - History of Present Illness Initial comments: 79-year-old male presenting with chief complaint of right eye pain. Patient was walking with a couple of chlorine into his hot tub when he hit his arm and the chlorine splashed into his eye. He did immediately go to the sink and flush at home and also use artificial tears. He is having discomfort, which makes it difficult to keep his eye open. There is some redness around the eye. No vision loss, progressive blurriness. - Related Data Home Medications Medication Instructions Recorded Confirmed Instaflex 1 tab PO DAILY 05/15/17 04/21/24 Montelukast Sodium [Singulair] 10 mg PO DAILY 05/15/17 04/21/24 Naltrexone HCl/Bupropion HCl 2 tab PO BID 05/15/17 04/21/24 [Contrave ER 8-90 mg Tablet] Colchicine [Colcrys] 0.6 mg PO DAILY 04/21/24 04/21/24 Ergocalciferol [Vitamin D2 (1250 1,250 mcg PO FORREST 04/21/24 04/21/24 Mcg = 25841 Iu)] Meclizine [Antivert] 25 mg PO BID 04/21/24 04/21/24 allopurinoL [Zyloprim] 300 mg PO DAILY 04/21/24 04/21/24 rOPINIRole HCL [Requip] 1 mg PO BID 04/21/24 04/21/24 traZODone HCL 100 mg PO HS 04/21/24 04/21/24 Previous Rx's Medication Instructions Recorded Aspirin 81 mg PO DAILY #90 tab 04/23/24 Atorvastatin [Lipitor] 80 mg PO HS #90 tab 04/23/24 Clopidogrel [Plavix] 75 mg PO DAILY #90 tab 04/23/24 Isosorbide Mononitrate ER [Imdur] 30 mg PO DAILY #90 tab 04/23/24 Metoprolol Tartrate [Lopressor] 12.5 mg PO BID #60 tab 04/23/24 Allergies Allergy/AdvReac Type Severity Reaction Status Date / Time Sulfa (Sulfonamide Allergy Rash/Hives Verified 07/25/24 00:41 Antibiotics) Review of Systems ROS Statement: Those systems with pertinent positive or pertinent negative responses have been documented in the HPI. ROS Other: All systems not noted in ROS Statement are negative. Past Medical History Past Medical History: Hypertension History of Any Multi-Drug Resistant Organisms: None Reported Past Surgical History: Tonsillectomy Past Anesthesia/Blood Transfusion Reactions: Previous Problems w/ Anesthesia Additional Past Anesthesia/Blood Transfusion Reaction / Comment(s): states he was told post op dizziness was related to anesthesia Past Psychological History: No Psychological Hx Reported Smoking Status: Never smoker Past Alcohol Use History: None Reported Past Drug Use History: None Reported General Exam Limitations: no limitations General appearance: alert, in no apparent distress Head exam: Present: atraumatic, normocephalic, normal inspection Eye exam: Present: PERRL, EOMI, conjunctival injection (Scleral injection) Pupils: Present: normal accommodation Neck exam: Present: normal inspection. Absent: meningismus Respiratory exam: Absent: respiratory distress Cardiovascular Exam: Present: regular rate Neurological exam: Present: alert, oriented X3 Psychiatric exam: Present: normal affect, normal mood Skin exam: Present: warm, dry Course Vital Signs 07/25/24 00:41 Temperature 98.2 F Pulse Rate 71 Respiratory 16 Rate Blood Pressure 153/77 O2 Sat by Pulse 97 Oximetry Medical Decision Making - Medical Decision Making Was pt. sent in by a medical professional or institution (CAROLINE Faust, PUBLIC HEALTH SERVICE OFFICER, urgent care, hospital, or [facility]...) When possible be specific @ -No Did you speak to anyone other than the patient for history (EMS, parent, family, police, friend...)? What history was obtained from this source @ -No Did you review nursing and triage notes (agree or disagree)? Why? @ -I reviewed and agree with nursing and triage notes Were old charts reviewed (outside hosp., previous admission, EMS record, old EKG, old radiological studies, urgent care reports/EKG's, [facility] records)? Report findings @ -No old charts were reviewed Differential Diagnosis (chest pain, altered mental status, abdominal pain women, abdominal pain men, vaginal bleeding, weakness, fever, dyspnea, syncope, headache, dizziness, GI bleed, back pain, seizure, CVA, palpatations, mental health, musculoskeletal)? @ -Differential includes chemical burn, corneal abrasion, foreign body, this is not an all-inclusive list EKG interpreted by me (3pts min.). @ -As above X-rays interpreted by me (1pt min.). @ -None done CT interpreted by me (1pt min.). @ -None done U/S interpreted by me (1pt. min.). @ -None done What testing was considered but not performed or refused? (CT, X-rays, U/S, labs)? Why? @ -None What meds were considered but not given or refused? Why? @ -None Did you discuss the management of the patient with other professionals (professionals i.e. Dr., PA, PUBLIC HEALTH SERVICE OFFICER, lab, RT, psych nurse, social insurance adviser, cupola tapper helper, teacher, security officer supervisor, case resource manager)? Give summary @ -No Was smoking cessation discussed for >3mins.? @ -No Was critical care preformed (if so, how long)? @ -No Were there social determinants of health that impacted care today? How? (Homelessness, low income, unemployed, alcoholism, drug addiction, transportation, low edu. Level, literacy, decrease access to med. care, fpc, rehab)? @ -No Was there de-escalation of care discussed even if they declined (Discuss DNR or withdrawal of care, Hospice)? DNR status @ -No What co-morbidities impacted this encounter? (DM, HTN, Smoking, COPD, CAD, Cancer, CVA, ARF, Chemo, Hep., AIDS, mental health diagnosis, sleep apnea, morbid obesity)? @ -None Was patient admitted / discharged? Hospital course, mention meds given and route, prescriptions, significant lab abnormalities, going to OR and other pertinent info. @ -79-year-old male presenting for evaluation after accidentally splashing chlorine into his right eye about an hour prior to arrival. On exam there is scleral injection and patient is having difficulty keeping his eye open due to the pain. Ben lens is used and the eye is flushed with 1 L of normal saline. The pH is checked and ranges between 7 and 8. Patient states that he feels much better. He does have some blurriness to the eye, fluorescein staining is performed and there is some uptake, may be from him rubbing his eye and discomfort earlier. Placed on erythromycin eye ointment. He will follow-up with his cleaning specialist Dr. Goodrich. Discharged. Follow-up with PCP. Report back to ER with any new or worsening symptoms. Discussed return parameters and answered all questions. Patient conveyed verbal understanding and agreed to the plan. I discussed this case in detail with my attending Dr. Hernandez Undiagnosed new problem with uncertain prognosis? @ -No Drug Therapy requiring intensive monitoring for toxicity (Heparin, Nitro, Insulin, Cardizem)? @ -No Were any procedures done? @ -No Diagnosis/symptom? @ -Chemical burn to the eye Acute, or Chronic, or Acute on Chronic? @ -Acute Uncomplicated (without systemic symptoms) or Complicated (systemic symptoms)? @ -Uncomplicated Side effects of treatment? @ -No Exacerbation, Progression, or Severe Exacerbation? @ -No Poses a threat to life or bodily function? How? (Chest pain, [place], [place], pneumonia, PE, COPD, DKA, ARF, appy, cholecystitis, CVA, Diverticulitis, Homicidal, Suicidal, threat to staff... and all critical care pts) @ -Unlikely Disposition Clinical Impression: Eye injury, superficial Disposition: HOME SELF-CARE Condition: Good Instructions (If sedation given, give patient instructions): Chemical Eye Brown (ED) Additional Instructions: Follow-up with your cleaning specialist. Report back to ER with any new or worsening symptoms. Apply the antibiotic ointment to your eye 4 times per day for 5 days Is patient prescribed a controlled substance at d/c from ED?: No Referrals: Emerita Ferrera DO [Primary Care Provider] - 1-2 days Kirk Goodrich DO [Doctor of Osteopathic Medicine] - 1-2 days Time of Disposition: 02:20
[2024-07-25] MEDS: ERYTHROMYCIN 5 MG/GM OPHTH OINT 3.5 GM TUBE RIGHT EYE STA (02:22)
[2024-07-25] MEDS: FLUORESCEIN STRIPS 1 MG STRIP RIGHT EYE ONE (02:23)
[2024-07-25] MEDS: PROPARACAINE 0.5% OPHTH DROPS 15 ML BTL RIGHT EYE STA (02:23)
== END 2024-07-25 02:35 | disposition home or self-care (01) ==
LOC: EC 00:33
DX: S00.201A Unspecified superficial injury of right eyelid and periocular area, initial encounter (principal); Z88.2 Allergy status to sulfonamides; X58.XXXA Exposure to other specified factors, initial encounter; Y93.01 Activity, walking, marching and hiking
CPT/HCPCS: 99283